=== PATIENT | female | born 1965 | race Caucasian/White ===

== ENCOUNTER 2016-12-09 22:26 | Emergency (ER) | payer OTHER | END 2016-12-09 23:53 | disposition home or self-care (01) | LOC: FER 22:26 | DX: M77.52 Other enthesopathy of left foot and ankle (principal); I11.9 Hypertensive heart disease without heart failure; J44.9 Chronic obstructive pulmonary disease, unspecified; K21.9 Gastro-esophageal reflux disease without esophagitis; Z79.51 Long term (current) use of inhaled steroids; Z79.899 Other long term (current) drug therapy | CPT/HCPCS: J1030 ==